=== PATIENT | female | born 1990 | race American Indian/Alaskan Native ===

== ENCOUNTER 2017-07-08 20:26 | Emergency (ER) | payer MEDICAID ==
[2017-07-08 21:03] VITALS: BP 129/70
--- NOTE | 2017-07-08 22:19 | Cat Scan Report ---
FINAL REPORT PROCEDURE: CT head without contrast. TECHNIQUE: Computerized tomography of the head was performed without contrast material. HISTORY: Migraine headache. COMPARISON: No prior studies are available for comparison. FINDINGS: The ventricles are normal in size. The antunez matter and white matter appear normal. There are no mass lesions. There is no intracranial hemorrhage. There are no signs of acute infarction. The calvarium appears intact. The mastoid air cells and visualized paranasal sinuses are clear. IMPRESSION: Normal study.
== END 2017-07-08 22:20 | disposition left against medical advice (07) ==
LOC: ED 20:26
DX: G43.909 Migraine, unspecified, not intractable, without status migrainosus (principal); Z53.21 Procedure and treatment not carried out due to patient leaving prior to being seen by health care provider
CPT/HCPCS: 70450